=== PATIENT | female | born 1940 | race Caucasian/White ===

== ENCOUNTER 2024-09-09 18:41 | Inpatient (IN) | payer BC ==
[~2024-09-09] VITALS: Ht 157.5 cm; Wt 72.0 kg
[2024-09-09 19:32] LABS: BASOPHILS ABSOLUTE AUTO 0.04 K/mm3 (0.00-0.23); BASOPHILS PERCENT AUTO 1 % (0-2); EOSINOPHILS ABSOLUTE AUTO 0.31 K/mm3 (0.00-0.68); EOSINOPHILS PERCENT AUTO 5 % (0-6); Hematocrit 28.1 % (33.0-51.0); Hemoglobin 8.4 g/dL (11.5-16.0); IMMATURE GRAN ABSOLUTE AUTO 0.02 K/mm3 (0.00-0.10); IMMATURE GRAN PERCENT AUTO 0 % (0-1); LYMPHOCYTES ABSOLUTE AUTO 0.79 K/mm3 (0.84-5.20); LYMPHOCYTES PERCENT AUTO 13 % (21-46); MONOCYTES ABSOLUTE AUTO 0.75 K/mm3 (0.16-1.47); MONOCYTES PERCENT AUTO 13 % (4-13); Mean Corpuscular HGB 23.6 pg (26.0-34.0); Mean Corpuscular HGB Conc 29.9 g/dL (31.5-36.5); Mean Corpuscular Volume 79 fL (80-100); Mean Platelet Volume 9.9 fL (9.1-12.4); NEUTROPHILS ABSOLUTE AUTO 3.98 K/mm3 (1.96-9.15); NEUTROPHILS PERCENT AUTO 68 % (41-73); Platelet Count 322 K/mm3 (150-400); RDW Coefficient Variation 16.9 % (11.7-14.2); RDW Standard Deviation 48.5 fL (35.1-46.3); Red Blood Cell Count 3.56 M/mm3 (3.80-5.20); White Blood Cell Count 5.89 K/mm3 (4.00-11.30)
[2024-09-09 19:57] LABS: Albumin, Blood 2.4 g/dL (3.4-5.0); Albumin/Globulin Ratio 0.6 (0.8-1.8); Bilirubin, Total 0.4 mg/dL (0.1-1.0); Bun/Creatinine Ratio 10.5 (12.0-20.0); Calcium, Blood 8.5 mg/dL (8.5-10.1); Creatinine, Blood 1.14 mg/dL (0.40-1.00); Globulin, Blood 4.1 g/dL (2.2-4.0); Potassium, Blood 3.1 mmol/L (3.5-5.5); Total Protein, Blood 6.5 g/dL (6.4-8.2)
[2024-09-09] MEDS ORDERED: CefTRIAXone Sodium 1,000 MG in NS 100 ML IV ONE (20:25)
[2024-09-09] MEDS ORDERED: Azithromycin 500 MG in NS 250 ML IV ONE (20:25)
[2024-09-09] MEDS ORDERED: Furosemide 10 MG / ML 2ML Vial IV ONE (20:25)
[2024-09-09] MEDS ORDERED: Aspirin 325 MG Tab PO ONE (20:25)
[2024-09-09 21:06] LABS: Source, Urine Foley catheter
[2024-09-09 21:16] LABS: Appearance, Urine Hazy (Clear); Bilirubin, Urine Neg (Neg); Blood, Urine Neg (Neg); Color, Urine Yellow (P-Yellow); Glucose Qualitative, Urine Neg (Neg); Ketones, Urine Neg (Neg); Leukocyte Esterase, Urine 2+ (Neg); Nitrite, Urine Pos (Neg); Protein, Urine 2+ (Neg); Urobilinogen, Urine 1+ (Normal)
[2024-09-09 21:23] LABS: Bacteria Many /hpf; Mucus Light (0-Heavy); Red Blood Cells, Urine 0-2 /hpf (0-2); Squamous Epithelial Cells Few /hpf (Few); Transitional Epithelial Cells Rare /hpf (0-Rare)
[2024-09-09 21:24] LABS: Hyaline Casts 0-2 /lpf (0-2)
[2024-09-09] MEDS ORDERED: Acetaminophen 325 MG TABLET PO PRN (22:15)
[2024-09-09] MEDS ORDERED: Guaifenesin/Dextromethorphan Syrup 5 ML UDC PO PRN (22:15)
[2024-09-09] MEDS ORDERED: FLU VACC TS2024-25(6MOS UP)/PF 45 MCG/0.5 ML SYRINGE IM ONE (22:15)
[2024-09-09] MEDS ORDERED: Ondansetron HCl 2 MG / ML 2ML Vial IV PRN (22:15)
[2024-09-09] MEDS ORDERED: Potassium Chloride 40 MEQ in NS 250 ML IV ONE (22:30)
[2024-09-09 22:39] LABS: CORONAVIRUS COVID-19 AG Negative (NEGATIVE); INFLUENZA A AG Negative (NEGATIVE); INFLUENZA B AG Negative (NEGATIVE)
[2024-09-09 22:41] LABS: Magnesium, Blood 1.9 mg/dL (1.6-2.4)
[2024-09-09] MEDS ORDERED: Enoxaparin 40 MG/0.4 ML SYR SC SCH (23:00)
[2024-09-09 23:57] VITALS: BP 159/59
[2024-09-10] MEDS ORDERED: HydrALAZINE HCl 20 MG / ML 1ML Vial IV PRN (00:15)
--- NOTE | 2024-09-10 02:38 | NUR ---
ADMIT NOTE RECEIVED REPORT FROM THE ER NURSE. PT WAS BROUGHT DOWN ON THE GURNEY TO ROOM NUMBER [id number]. PT ALERT TO SELF ONLY AND IS VERY CONFUSED AND LETHARGIC. 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 I APPLIED A PATCH TO THE AREA, REDNESS WITH EDEMA TO BLE, A OLD SCABBED AREA WITH BRUISING FROM A FALL TO HER RT FOREHEAD AND REDDENED ADRI AREA. PTS DAUGHTER CAME U WITH THE PT. AND WAS ORIENTED TO THE ROOM AND STAFF. PTS DAUGHTER STATED THAT HER MOM AND HER AGREE THAT SHE SHOULD BE A DNR AND THATS WHAT THEY WANT. THE DAUGHTER STATED THAT HER MOM IS 85 AND HAS NO GOOD QUALITY OF LIFE ANYMORE. SHE STATED THAT SHE JUST MOVED HER MOM HERE FROM [place] IN JUNE BECAUSE HER MOM KEPT FALLING. SHE IS WEARING O2 BUT CONTINUES TO TRY TO REMOVE IT AND HAS TO BE REAPLIED. SHES RESTING IN BED AT THIS TIME
[2024-09-10 04:15] VITALS: BP 161/70
--- NOTE | 2024-09-10 04:53 | NUR ---
SHIFT SUMMARY PT WAS ADMITTED FROM ER AT 2335 WITH A DX OF UTI, PNEUMONIA, ELEVATED TROPS, CHF. PT ALERT ORIENTED TO SELF ONLY WITH CONFUSION AND LETHARGIC. PT WAS EATING BEEF STEW AT HOME AND CHOKED AND IS NOW HAVING A CONTINUOUS NONPRODUCTIVE COUGH. SHE HAD ELEVATED TROPS OF 305, 310 AND 292. SHES CURRENTLY NPO PENDING A ST EVAL. SHES SCHEDULED TO HAVE A ECHO DONE THIS AM. SHE HAS A OLD WOUND TO HER RT FOREHEAD FROM A OLD FALL, BLE REDNESS WITH EDEMA, INCONTINENT DERMATITIS WHICH I PUT A COCCYX MEPILEX ON, REDDENED ADRI AREA AND BRUISING TO HER RT ARM. PT WAS JUST MOVED HERE TO HER DAUGHTERS FROM [place] IN JUNE. SHE IS INCONTINENT OF B&B AND HAS A [facility]WICK IN [facility]. SHE HAS A PALLIATIVE CARE CONSULT ORDERD. I CALLED AND LEFT A MESSAGE TO INFORM THEM. HER POTASSIUM LEVEL WAS 3.1 YESTERDAY AND SHE RECEIVED IV POTASSIUM. HER DAUGHTER STATED THAT HER AND HER MOM HAVE DECIDED ON A DNR STATUS. SHES TURNED AND REPOSITIONED RESTING WELL IN BED AT THIS TIME WITH CALL LIGHT IN REACH
[2024-09-10 06:34] LABS: BASOPHILS ABSOLUTE AUTO 0.03 K/mm3 (0.00-0.23); BASOPHILS PERCENT AUTO 1 % (0-2); EOSINOPHILS ABSOLUTE AUTO 0.52 K/mm3 (0.00-0.68); EOSINOPHILS PERCENT AUTO 8 % (0-6); Hematocrit 28.1 % (33.0-51.0); Hemoglobin 8.4 g/dL (11.5-16.0); IMMATURE GRAN ABSOLUTE AUTO 0.03 K/mm3 (0.00-0.10); IMMATURE GRAN PERCENT AUTO 1 % (0-1); LYMPHOCYTES ABSOLUTE AUTO 0.91 K/mm3 (0.84-5.20); LYMPHOCYTES PERCENT AUTO 15 % (21-46); MONOCYTES ABSOLUTE AUTO 0.86 K/mm3 (0.16-1.47); MONOCYTES PERCENT AUTO 14 % (4-13); Mean Corpuscular HGB 23.7 pg (26.0-34.0); Mean Corpuscular HGB Conc 29.9 g/dL (31.5-36.5); Mean Corpuscular Volume 79 fL (80-100); Mean Platelet Volume 10.2 fL (9.1-12.4); NEUTROPHILS ABSOLUTE AUTO 3.81 K/mm3 (1.96-9.15); NEUTROPHILS PERCENT AUTO 62 % (41-73); Platelet Count 317 K/mm3 (150-400); RDW Coefficient Variation 16.8 % (11.7-14.2); RDW Standard Deviation 48.3 fL (35.1-46.3); Red Blood Cell Count 3.54 M/mm3 (3.80-5.20); White Blood Cell Count 6.16 K/mm3 (4.00-11.30)
[2024-09-10 06:56] LABS: Albumin, Blood 2.3 g/dL (3.4-5.0); Albumin/Globulin Ratio 0.6 (0.8-1.8); Bilirubin, Total 0.3 mg/dL (0.1-1.0); Bun/Creatinine Ratio 9.9 (12.0-20.0); Calcium, Blood 8.3 mg/dL (8.5-10.1); Creatinine, Blood 1.11 mg/dL (0.40-1.00); Globulin, Blood 3.7 g/dL (2.2-4.0); Potassium, Blood 3.3 mmol/L (3.5-5.5)
[2024-09-10 07:20] VITALS: BP 180/80
[2024-09-10] MEDS ORDERED: Potassium Chloride 20 MEQ/15 ML UDC PO ONE (15:00)
[2024-09-10 15:04] VITALS: BP 148/68
[2024-09-10 15:14] LABS: Percent Saturation 9.3 % (15.0-50.0)
[2024-09-10] MEDS ORDERED: FURO20 PO (16:07)
[2024-09-10] MEDS ORDERED: Isosorbide Mono30 MG PO (16:08)
[2024-09-10] MEDS ORDERED: ONDA8 PO (16:09)
[2024-09-10] MEDS ORDERED: OXYB5 PO (16:09)
[2024-09-10 19:49] VITALS: BP 140/124
[2024-09-10 20:00] VITALS: BP 160/60
[2024-09-10] MEDS ORDERED: Azithromycin 500 MG in NS 250 ML IV SCH (21:00)
[2024-09-10] MEDS ORDERED: CefTRIAXone Sodium 1,000 MG in NS 100 ML IV SCH (21:00)
--- NOTE | 2024-09-10 22:28 | NUR ---
Pt agitated/anxious. Pt confused asking for daughter and is wanting to go home. pulling off tele leads and Nasal cannula.
[2024-09-11 03:20] VITALS: BP 170/60
[2024-09-11 06:08] LABS: Hematocrit 28.2 % (33.0-51.0); Hemoglobin 8.5 g/dL (11.5-16.0); Mean Corpuscular HGB 23.7 pg (26.0-34.0); Mean Corpuscular HGB Conc 30.1 g/dL (31.5-36.5); Mean Corpuscular Volume 79 fL (80-100); Mean Platelet Volume 9.8 fL (9.1-12.4); Platelet Count 297 K/mm3 (150-400); RDW Coefficient Variation 16.8 % (11.7-14.2); Red Blood Cell Count 3.59 M/mm3 (3.80-5.20); White Blood Cell Count 6.02 K/mm3 (4.00-11.30)
[2024-09-11 06:37] LABS: Bun/Creatinine Ratio 10.2 (12.0-20.0); Calcium, Blood 8.4 mg/dL (8.5-10.1); Creatinine, Blood 1.08 mg/dL (0.40-1.00); Potassium, Blood 3.8 mmol/L (3.5-5.5)
[2024-09-11] MEDS ORDERED: Isosorbide Mononitrate 30 MG TABCR PO SCH (09:00)
[2024-09-11] MEDS ORDERED: oxyBUTYnin chloride 5 MG TAB PO SCH (09:00)
[2024-09-11] MEDS ORDERED: Furosemide 20 MG Tab PO SCH (09:00)
[2024-09-11 09:40] VITALS: BP 198/85
[2024-09-11] MEDS ORDERED: Iron Dextran 50 MG / ML 2ML Vial IV ONE (11:00)
[2024-09-11 11:01] VITALS: BP 165/69
[2024-09-11] MEDS ORDERED: Iron Dextran 975 MG in NS 250 ML IV ONE (12:00)
[2024-09-11 15:10] VITALS: BP 131/96
[2024-09-11 20:09] VITALS: BP 149/77
[2024-09-11] MEDS ORDERED: CefTRIAXone 1000 MG Vial ONE (22:20)
[2024-09-11] MEDS ORDERED: NS 250 ML IV PRN (22:30)
[2024-09-12 04:01] VITALS: BP 175/105
[2024-09-12] MEDS ORDERED: Ipratropium/Albuterol SulF 2.5-0.5MG/3 ML Amp INH SCH (04:50)
[2024-09-12] MEDS ORDERED: Benzonatate 100 MG Cap PO PRN (04:50)
[2024-09-12] MEDS ORDERED: Ipratropium/Albuterol SulF 2.5-0.5MG/3 ML Amp INH PRN (05:00)
[2024-09-12 06:14] VITALS: BP 152/101
--- NOTE | 2024-09-12 06:18 | NUR ---
Rn shift summary: Patient was very sweet and cooperative at the beginning of the shift. She is oriented to self only, she doesn't know where she is, who her daughter is. She is very confused and will not leave her O2 on. Pt has not tried to get out of bed until this am. Patient was afraid to take her tesselon zaria this am, she felt it was "dope".Patient has had some visual hallucinations this shift. Patient has not rested all night. Lungs have inspiratory crackles and expiratory wheezes greater on the right lung. Pt has had a dry cough all night. Robitussin D did not help. Tesselon zaria tried this am. Respiratory therapy evaluated, duoneb tried with minimal relief. Pt is on a purwik with dk yellow urine. Tele monitor shows SR rate 80. Pt BP was elevated this am, Hydralazine 10g IV given, BP down from systolic 175 to sys 152. Pt has had a sitter the last third of shift as pt became more restless and would not keep O2 on.O2 increased to 3 liters this am kwhen sats only 90% on 2 liters. Will continue to monitor.
[2024-09-12 08:07] VITALS: BP 154/66
[2024-09-12] MEDS ORDERED: Metoprolol Tartrate 25 MG Tab PO SCH (09:00)
--- NOTE | 2024-09-12 10:53 | NUR ---
KALEB HAS A 1:1 SITTER BEDSIDE. SHE IS UNABLE TO STATE HER NAME OR BIRTHDAY, SHE IS ABLE TO SWALLOW HER PILLS WHOLE, ONE AT A TIME, ADMINISTERED BY THIS RN. SHE IS ON ASPIRATION BREAK CAUTIONS, 1:1 FEEDER. REQUIRES CUEING TO SWALLOW HER MEDS. LUNGS ARE COARSE. EDEMA TO BLE. PUREWICK IN PLACE. 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 PT ASLEEP FREQUENTLY, BUT WAKES TO VERBAL STIMULI.
[2024-09-12 15:17] VITALS: BP 143/63
--- NOTE | 2024-09-12 15:43 | NUR ---
Pt's status changed to comfort care by Dr. Young. Decision made by POA/Daughter Milagros. POLST filled out, awaiting physician signature.
[2024-09-12] MEDS ORDERED: Morphine Sulfate 20 MG/1ML 1 ML Oral Syringe SL PRN (16:05)
[2024-09-12] MEDS ORDERED: Atropine Sulfate 1% Opth Soln 2ML BTL SL PRN (16:05)
[2024-09-12] MEDS ORDERED: Scopolamine Hydrobromide Patch TOP PRN (16:05)
--- NOTE | 2024-09-12 20:23 | NUR ---
KALEB WAS TRANSITIONED TO COMFORT CARE. IV'S AND TELE REMOVED. KALEB HAS CONTINUED TO DENY PAIN, AND SHOWS NO SIGN OF PAIN LIKE GRIMACING OR TEARS. SHE IS UNABLE TO STATE HER NAME OR OR ANSWER ORIENTATION QUESTIONS. SHE HAS HAD A 1:1 SITTER BECAUSE SHE REMOVES HER OXYGEN NC. O2 AT 3LPM DUE TO PNEUMONIA. SHE TAKES HER PILLS WHOLE WITH APPLE SAUCE. SHE IS A FEEDER, AND HAS A PUREED DIET. SHE HAS ASKED ABOUT HER FRIENDS, AND WHERE THEY ARE. SHE HAS REMAINED IN A CHEERFUL, PLEASANT AFFECT THROUGH OUT THE SHIFT AND SLEPT A LOT.
--- NOTE | 2024-09-13 04:16 | NUR ---
INTELLIGENCE MANAGER SUMMARY: PT CONTINUES ON COMFORT CARE. PT ALERT AND CONFUSED. NEEDS ANTICIPATED BY STAFF. TURN Q2H. 1:1 SITTER TO HELP MANAGE OXYGEN NC. 02 AT 3L VIA NC D/T PNEUMONIA. IV ABX AND OXYBUTYNIN D/C D/T COMFORT CARE MEASURES. PLAN TO D/C HOME WITH HOSPICE SERVICES. CARES CONTINUE ORDERED.
[2024-09-13] MEDS ORDERED: Ondansetron 4 MG SoluTab SL PRN (13:05)
--- NOTE | 2024-09-13 17:59 | NUR ---
SHIFT SUMMARY PT IS A/OX1-2, CONFUSED AND FORGETFUL. PT OFTEN EXPERIENCES HALLUCINATIONS. PT ALSO FREQUENTLY PULLS OFF NASAL CANNULA. PT IS ON 3L NC TO MAINTAIN O2 SATS >90%. PT ATTEMPTED TO GET OUT OF BED X1 THIS SHIFT, PT REDIRECTABLE AND BED ALARM REMAINS ON. PT INCONT OF LESTER AND BLADDER, ATTENDS IN PLACE AND CHANGED NEEDED. PT EATTING LITTLE.
--- NOTE | 2024-09-14 04:59 | NUR ---
SHIFT SUMMARY: PT AOX1 ALERT TO SELF ONLY. INSISTS THAT SHE IS AT HOME. CONSTANTLY ANXIOUS ABOUT MONEY DESPITE ATTEMPTS TO REORIENT. PT HAD PERSISTENT NON PRODUCTIVE COUGHT BUT IS NON COMPLIANT WITH TAKING MEDICATIONS. WHILE ATTEMPTING TO GIVE TESSALON JOSE IN APPLE SAUCE, PT WOULD EAT A BIT OF THE APPLESAUCE AND SPIT OUT THE PILL. ATTEMPTED TO DO THE SAME WITH LIQ COUGH MEDICINE AND HAD ISSUES DRINKING FROM THE CUP. PT DID NOT SLEEP ALL NIGHT AND RESTLESSLY FIDGETING IN BED, BUT NOT IMPULSIVE TO GET OUT OF BED. NO ACUTE EVENTS OVERNIGHT. PT IN BED, BED IN LOWEST POSITION, CALL LIGHT IN REACH. CONTINUING CARE.
[2024-09-14] MEDS ORDERED: BENZ100A PO (11:49)
[2024-09-14] MEDS ORDERED: ATROPINE SULFATE2 M1 SL (11:49)
[2024-09-14] MEDS ORDERED: Q-Tussin100 MG/5 M PO (11:50)
[2024-09-14] MEDS ORDERED: MORP20L SL (11:50)
[2024-09-14] MEDS ORDERED: TRANSDERM-SCOP1 EA13 TD (11:51)
--- NOTE | 2024-09-14 13:01 | NUR ---
DISCHARGE PT AOX1/2, COOPERATIVE. NO IV ACCESS DC'D, PT LEFT USING [facility]. THIS RN WENT OVER DC PAPERWORK WITH PT AND INFORMED HOSPICE SERVICES WOULD BE TAKING CARE OF HER. BELONGING WENT WITH TRANPORT ALONG WITH PURPLE FOLDER AND BEIGE FOLDER ALONG WITH DERRELL. REMINDED TRANPORT MULTIPLE TIMES ABOUT OXYGEN REQURIEMENTS.
== END 2024-09-14 13:00 | disposition hospice, home (50) | DRG 177 ==
LOC: ER 18:41 → MEDS 21:16 → ERHOLD 21:16 → MEDS 23:51
PROVIDERS: Internal Medicine; Student in an Organized Health Care Education/Training Program; ADMIT Internal Medicine
DX: J69.0 Pneumonitis due to inhalation of food and vomit (principal); I21.A1 Myocardial infarction type 2; J96.01 Acute respiratory failure with hypoxia; N39.0 Urinary tract infection, site not specified; J18.9 Pneumonia, unspecified organism; E87.6 Hypokalemia; D63.8 Anemia in other chronic diseases classified elsewhere; Z51.5 Encounter for palliative care; F03.90 Unspecified dementia, unspecified severity, without behavioral disturbance, psychotic disturbance, mood disturbance, and anxiety; I10 Essential (primary) hypertension; Z79.899 Other long term (current) drug therapy
CPT/HCPCS: 36415; 51701; 71046; 80048; 80053; 81001; 82728; 82947; 83540; 83550; 83735; 83880; 84484; 85025; 85027; 87428-QW; 92526; 92610; 93005; 93010; 93306; 94640; 94664; 94760; 94762; 97162; 97530; 99285-25; A9270; J0360; J0456; J0696; J1650; J1750; J1940; J3480; J7050